=== PATIENT | female | born 1935 | race American Indian/Alaskan Native ===

== ENCOUNTER 2017-01-26 08:25 | Emergency (ER) | payer MEDICARE ==
[2017-01-26 09:25] LABS: Anion Gap 17 mmol/L; BUN/Creatinine Ratio 16.66; Blood Urea Nitrogen 10 mg/dL (7-17); Calcium 9.2 mg/dL (8.4-10.2); Carbon Dioxide 22 mmol/L (22-30); Chloride 103.9 mmol/L (98-107); Glucose 151 mg/dL (65-100); Potassium 4.2 mmol/L (3.6-5.0); Sodium 139 mmol/L (137-145)
[2017-01-26 09:28] LABS: Mean Corpuscular HGB Conc 30 % (30-34); Mean Corpuscular Volume 84 fl (79-97); Platelet Count 234 K/mm3 (140-440); Red Blood Count 4.89 M/mm3 (3.65-5.03); White Blood Count 7.5 K/mm3 (4.5-11.0)
[2017-01-26 09:31] LABS: Hemoglobin 12.1 gm/dl (10.1-14.3); Mean Corpuscular Hemoglobin 25 pg (28-32); Red Cell Distribution Width 20.9 % (13.2-15.2)
--- NOTE | 2017-01-26 10:16 | Emergency Department Report ---
HPI - General Chief Complaint: Recheck/Abnormal Lab/Rx Time Seen by Provider: 01/26/17 09:04 - HPI HPI: This is a 81-year-old -[place] female presents to emergency department, sent in by her PCP Dr Burks, for some elevated potassium level was found in the office. Patient denies any history of hyperkalemia. She has a past medical history of [id number] diabetes and hypertension. She denies any chest pain, shortness of breath, palpitations or any symptoms at this time. No recent travel or sick contacts at home. ED Past Medical Hx - Past Medical History Previous Medical History?: Yes Hx Hypertension: Yes Hx Diabetes: Yes Hx Headaches / Migraines: Yes - Social History Smoking Status: Never Smoker Substance Use Type: None - Medications Home Medications: Home Medications Medication Instructions Recorded Confirmed Last Taken Type Bisacodyl [Dulcolax suppos] 10 mg OH QDAY PRN #30 supp.rect 06/18/16 Unknown Rx Cyanocobalamin [Vitamin B-12] 100 mcg PO QDAY #30 tablet 06/18/16 Unknown Rx Folic Acid [Folvite] 1 mg PO QDAY #30 tablet 06/18/16 Unknown Rx Multivitamin Tab [Multiple Vitamin 1 each PO QDAY #30 tablet 06/18/16 Unknown Rx TAB (Theragran)] Pantoprazole [Protonix TAB] 40 mg PO QDAY #30 tablet 06/18/16 Unknown Rx Simvastatin [Zocor TAB] 20 mg PO QHS #30 tablet 06/18/16 Unknown Rx metFORMIN [Glucophage] 100 mg PO BID #30 tablet 06/18/16 Unknown Rx ED Review of Systems ROS: Stated complaint: LAB WORK, POTTASSIUM HIGH Other details as noted in HPI Comment: All other systems reviewed and negative Constitutional: denies: chills, fever Eyes: denies: eye pain, eye discharge, vision change ENT: denies: ear pain, throat pain Respiratory: denies: cough, shortness of breath, wheezing Cardiovascular: denies: chest pain, palpitations Gastrointestinal: denies: abdominal pain, nausea, diarrhea Genitourinary: denies: urgency, dysuria, discharge Musculoskeletal: denies: back pain, joint swelling, arthralgia Skin: denies: rash, lesions Neurological: denies: headache, weakness, paresthesias Physical Exam - Physical Exam Vital Signs: Vital Signs 01/26/17 01/26/17 01/26/17 08:39 08:55 08:56 Temperature 98.7 F Pulse Rate 66 Respiratory 16 Rate Blood Pressure 134/78 O2 Sat by Pulse 98 96 99 Oximetry 01/26/17 01/26/17 08:57 08:59 Temperature Pulse Rate 68 Respiratory 6 L 15 Rate Blood Pressure 132/74 O2 Sat by Pulse 98 Oximetry Physical Exam: GENERAL: The patient is well-developed well-nourished. HENT: Normocephalic. Atraumatic. Patient has moist mucous membranes. EYES: Extraocular motions are intact. Pupils equal reactive to light bilaterally. NECK: Supple. Trachea is midline. CHEST/LUNGS: Clear to auscultation. There is no respiratory distress noted. HEART/CARDIOVASCULAR: Regular. There is no tachycardia. There is no gallop rub or murmur. ABDOMEN: Abdomen is soft, nontender. Patient has normal bowel sounds. There is no abdominal distention. SKIN: Skin is warm and dry. NEURO: The patient is awake, alert, and oriented. The patient is cooperative. The patient has no focal neurologic deficits. The patient has normal speech. MUSCULOSKELETAL: There is no tenderness or deformity. There is no evidence of acute injury. ED Course Vital Signs 01/26/17 01/26/17 01/26/17 08:39 08:55 08:56 Temperature 98.7 F Pulse Rate 66 Respiratory 16 Rate Blood Pressure 134/78 O2 Sat by Pulse 98 96 99 Oximetry 01/26/17 01/26/17 08:57 08:59 Temperature Pulse Rate 68 Respiratory 6 L 15 Rate Blood Pressure 132/74 O2 Sat by Pulse 98 Oximetry ED Medical Decision Making - Lab Data Result diagrams: 01/26/17 08:50 01/26/17 08:50 - Medical Decision Making 81-year-old female presents for a recheck of her potassium as her primary care physician told her that she had hyperkalemia based on lab work recently done. However her potassium was 4.4 today and the rest of blood work is unremarkable as well. The patient is asymptomatic and has no complaints. Vital signs stable throughout her ED course. Critical Care Time: No Critical care attestation.: If time is entered above; I have spent that time in minutes in the direct care of this critically ill patient, excluding procedure time. ED Disposition Clinical Impression: History of hyperkalemia Disposition: DC-01 TO HOME OR SELFCARE Is pt being admited?: No Condition: Stable Additional Instructions: You were seen today for a blood draw and a recheck of your potassium level as it was allegedly elevated when checked by your primary care physician. Your potassium level today is 4.2 which is within the normal range. Since he do not have any other complaints, concerns, or symptoms, you will be discharged home to follow up once again with your primary care physician. Return to the emergency department with any concerns or acute distress. Referrals: PRIMARY CARE, [Primary Care Provider] - 3-5 Days Time of Disposition: 10:17
[2017-01-26 10:37] VITALS: BP 128/65
== END 2017-01-26 10:30 | disposition home or self-care (01) ==
LOC: ED 08:25
DX: E87.5 Hyperkalemia (principal); I10 Essential (primary) hypertension; E11.9 Type 2 diabetes mellitus without complications; G43.909 Migraine, unspecified, not intractable, without status migrainosus
CPT/HCPCS: 36415; 80048; 85025; 93005; 93010

== ENCOUNTER 2019-01-16 08:41 | Day surgery (SDC) | payer MEDICARE ==
[~2019-01-16 08:41] MED LIST: NACL 0.9% 1000 ML 1,000 ML IV SCH
--- NOTE | 2019-01-16 09:48 | Anesthesia Consultation ---
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
--- NOTE | 2019-01-16 09:49 | Anesthesia Day of Surgery ---
Anesthesia Day of Surgery - Day of Surgery Patient Examined: Yes Patient H&P Reviewed: Yes Patient is NPO: Yes
[2019-01-16] MEDS ORDERED: DIPRIVAN 10 MG/ML IV ONE ×2 (10:17)
--- NOTE | 2019-01-16 10:44 | Operative Report ---
Operative Report Operative Report: DOS: 01/16/19 SURGEON: Ramirez Bah MD COLONOSCOPY with snare polypectomy and biopiy polypectomy REPORT PREOPERATIVE AND POSTOPERATIVE DIAGNOSIS: FH CRC, PH colon polyps DESCRIPTION OF PROCEDURE: The colonoscope was passed to the cecum as identified by the ileocecal valve and appendiceal orifice. Scope was carefully withdrawn. Retroflexion was performed in the rectum. At the end of procedure, the scope was cleaned using normal technique. Vital signs monitored continuously throughout. SEDATION: Provided by Anesthesiology Services. Quality of the prep was adequate. COMPLICATIONS: None. ESTIMATED BLOOD LOSS: minimal FINDINGS: * Small non thrombosed external hemorrhoids * Severe diverticulosis throughout the entire colon * 4mm sessile polyp in the ascending colon removed with cold snare polypectomy * 3mm semi-sessile polyp in the sigmoid colon, removed by cold biopsy polypectomy * Remainder of the exam was unremarkable RECOMMENDATIONS: * f/u path * Given patient's age, comorbidities, and results from today's colonoscopy, routine screening colonoscopy will no longer be required in the future.
[2019-01-16 13:38] VITALS: BP 137/70
== END 2019-01-16 08:42 | disposition home or self-care (01) ==
LOC: GIO 08:41
PROVIDERS: ATTEND Student in an Organized Health Care Education/Training Program
DX: Z12.11 Encounter for screening for malignant neoplasm of colon (principal); D12.2 Benign neoplasm of ascending colon; D12.5 Benign neoplasm of sigmoid colon; K64.8 Other hemorrhoids; K57.30 Diverticulosis of large intestine without perforation or abscess without bleeding; I11.0 Hypertensive heart disease with heart failure; I50.9 Heart failure, unspecified; K21.9 Gastro-esophageal reflux disease without esophagitis; E11.9 Type 2 diabetes mellitus without complications; F32.9 Major depressive disorder, single episode, unspecified; I25.10 Atherosclerotic heart disease of native coronary artery without angina pectoris; F03.90 Unspecified dementia, unspecified severity, without behavioral disturbance, psychotic disturbance, mood disturbance, and anxiety; Z80.0 Family history of malignant neoplasm of digestive organs; Z86.010 Personal history of colon polyps; Z91.013 Allergy to seafood; Z79.84 Long term (current) use of oral hypoglycemic drugs; Z87.440 Personal history of urinary (tract) infections; Z95.0 Presence of cardiac pacemaker; Z98.890 Other specified postprocedural states
CPT/HCPCS: 45380; 45385; 82962; 88305; J2704; J7030